=== PATIENT | female | born 1945 | race Caucasian/White ===

== ENCOUNTER → 2020-10-25 | Outpatient (CLI) | payer OTHER, MEDICARE ==
[~2020-10-25] MED LIST: ACID CONTROLLER20 MG PO; ASA81BEC PO; CARVEDILOL12.5 MG PO; CLARITIN10 M2 PO; ENALAPRIL MALEA20 MG PO; FLOMAX0.4 MG PO; FOSAMAX 70 MG T70 MG PO; MYCOPHENOLATE500 MG PO; NEORAL25 MG PO; ROSUVASTATIN CA10 MG PO; VITAMIN D32000 UNIT PO
[2020-10-25 09:29] LABS: HEMATOCRIT 32.4 % (37.0-47.0); HEMOGLOBIN 10.2 gm/dL (12.0-15.0); MCH 28.4 pg (26.0-34.0); MCHC 31.4 g/dL (28.0-37.0); MCV 90.6 fL (80.0-100.0); RBC 3.58 mil/uL (4.20-5.00); RDW 14.5 % (10.5-14.5); WBC 8.7 thou/uL (4.0-11.0)
--- NOTE | 2020-10-25 09:45 | EKG ---
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
[2020-10-25 09:53] LABS: ALBUMIN 3.3 g/dL (3.4-5.0); CALCIUM 8.8 mg/dL (8.5-10.1); CREATININE 2.3 mg/dL (0.6-1.0); MAGNESIUM 1.7 mg/dL (1.8-2.4); TOTAL BILIRUBIN 0.5 mg/dL (0.2-1.0); TOTAL PROTEIN 6.5 g/dL (6.4-8.2)
== END ==
LOC: RAD 08:48
PROVIDERS: ATTEND Otolaryngology Plastic Surgery within the Head & Neck
DX: C73 Malignant neoplasm of thyroid gland (principal); I49.9 Cardiac arrhythmia, unspecified; Z92.3 Personal history of irradiation

== ENCOUNTER 2020-10-28 08:49 | Inpatient (IN) | payer OTHER, MEDICARE ==
[~2020-10-28] VITALS: Ht 154.9 cm; Wt 101.2 kg
[2020-10-28 10:50] LABS: CALCIUM 9.1 mg/dL (8.5-10.1); CREATININE 1.8 mg/dL (0.6-1.0)
[2020-10-28 10:53] LABS: ALBUMIN 3.4 g/dL (3.4-5.0); TOTAL BILIRUBIN 0.4 mg/dL (0.2-1.0); TOTAL PROTEIN 6.6 g/dL (6.4-8.2)
[2020-10-28 12:09] VITALS: BP 171/73
[2020-10-28] MEDS ORDERED: CALCITRIOL0.25 MCG PO (15:49)
[2020-10-28] MEDS ORDERED: HYDROCODON-ACE1 EAC8 PO (15:49)
[2020-10-28] MEDS ORDERED: CALTRATE-600 W1 EACH PO (15:49)
[2020-10-28] MEDS ORDERED: SYNTHROID125 MC1 PO (15:49)
[2020-10-28 16:30] VITALS: BP 137/60
[2020-10-28 17:20] LABS: ALBUMIN 3.3 g/dL (3.4-5.0); MAGNESIUM 1.4 mg/dL (1.8-2.4)
[2020-10-28 19:15] VITALS: BP 151/69
--- NOTE | 2020-10-28 19:57 | NUR ---
PT CARE ASSUMED FROM THE OR AT 1620. A&Ox4. AT BEDSITE. ADMISSION COMPLEETED. INCISSION ON NECK DRY AND INTACT WITH STERIE STRIPS IN PLACE. LESLIE DRAIN IN RIGHT NECK WITH NO DRAINING. 30CC EMPTIED AT 1800. PT UP TO TH EBEDSIDE COMMODE AND HAS URINATED. IV INFILTRATED. NEW IV PLACED R. CHEST. PT REFUSED DINNER DUE TO NOT BEING ABLE TO SWALL FROM SURGERY SITE. PT HOME MED SENT TO PHARMACY TO BE LABELED. WILL BE STORED IN IV BIN. FALL PROTOCOL IN PLACE. CALL LIGHT IN REACH. WILL CONTINUE TO MONITOR. REPORT GIVEN TO ISRA MCNALLY. DISCHARGE ORDER PENDING FOR TOMORROW IN PLACE 10/29
[2020-10-29 04:24] VITALS: BP 172/72
--- NOTE | 2020-10-29 08:00 | NUR ---
RECEIVED CARE OF THIS PATIENT AT 1900. PATIENT ALERT AND ORIENTED X4. HAS INCISION ON NECK WITH TRANSPARENT DRESSING. LESLIE THAT HAD 40CC SEROSANGUINEOUS FLUID. SCD'S IN PLACE. UP TO BSC WITH SBA ONLY. PATIENT'S BROUGHT IN HOME MED NOT IN OUR FORMULARY. IV PATENT IN R CHEST.SLEPT MOST OF NIGHT. C/O PAIN ONLY WHEN SWALLOWING.
[2020-10-29 09:00] VITALS: BP 168/67
[2020-10-29 09:25] VITALS: BP 168/67
--- NOTE | 2020-11-01 13:07 | PATH ---
[facility] [address] [place] [address] PATHOLOGY RPT PROCEDURE Name: KATHERINE PERKINS Room #: 435-P DIS IN M.R.#: [id number] Admission: 10/28/20 Date of : 49 Discharge: 10/29/20 Report #: [id number] Path Case #: [id number] [facility] Accession Number: [id number] . 01 Material submitted: . PART A: thyroid gland - LEFT THYROID LOBE WITH ISTHMUS AND PYRAMIDAL LOBE. Modifiers: left PART B: neck - LEFT NECK NEVUS. Modifiers: left PART C: thyroid gland - RIGHT THYROID LOBE. Modifiers: right PART D: lymph node - RIGHT LEVEL 6. Modifiers: right PART E: lymph node - LEFT LEVEL 6. Modifiers: left . 01 Clinician provided ICD-10: C73 . 01 Clinical history: . THYROIDECTOMY RADICAL NECK DISSECTION PAPILLARY THYROID CARCINOMA . 02 Frozen section diagnosis: . FROZEN SECTION DIAGNOSIS: (Dr. Elvira Downing): . FSA1 and TPA2. Left thyroid lobe and isthmus, lobectomy: - 2.3 CM CALCIFIED NODULE WITH PAPILLARY THREE DIMENSIONAL GROUPS, FAVOR PAPILLARY CARCINOMA. . These findings are discussed with Dr. Jonathan Dhillon in OR1 and a written report is placed in the patient's chart. . Frozen section and touch prep performed at [facility], [address], [place] [address]. . . FROZEN SECTION GROSS DESCRIPTION: Specimen A is received fresh from the OR labeled with the patient's name, and "left thyroid lobe with isthmus and pyramidal lobe (frozen section) consists of a 21.9-gram thyroid lobe with attached isthmus measuring 7.2 x 3.0 x 1.6 cm with a 5 cm attached isthmus. The anterior capsule has multiple shant and it is inked black. The posterior capsule is rough and inked blue. At this point the specimen is serially sectioned and it shows a 2.3 x 2.0 x 2.0 cm partially calcified solid nodule in the upper pole of the left thyroid lobe. The lower pole has a spongy hemorrhagic nodule measuring 2.0 x 2.0 x 2.0 cm. At this point a sales representative cash registers section of the solid semi-calcified nodule is submitted for frozen section as FSA1, this is subsequently submitted for permanent sections as A1. An additional section is used for touch preparation labeled as TPA2, and this section is submitted for permanent sections only as A2. The remainder of [address] [address] PATHOLOGY RPT PROCEDURE Name: KATHERINE PERKINS Room #: 435-P DIS IN M.R.#: [id number] Admission: 10/28/20 Date of : 49 Discharge: 10/29/20 Report #: [id number] Path Case #: [id number] the solid nodule is submitted in entirety in A3 through A6. The isthmus and pyramidal lobe are entirely submitted in A7. Scientific Database Curator sections of the nodule as well as the remainder of the lobe are submitted for permanent sections only in A8, A9 and A10. A2 to A5 are submitted for light decalcification. (IUV/db; 10/31/2020) IZV/LBQ . 02 Diagnosis: A. Thyroid, left thyroid lobe with isthmus and pyramidal lobe, lobectomy: - PAPILLARY CARCINOMA, CLASSIC (USUAL/CONVENTIONAL) TYPE MEASURING 2.3 CM IN GREATEST DIMENSION. - TUMOR PRESENT FOCALLY AT ANTERIOR MARGIN/SURFACE OF THE LEFT THYROID LOBE. - Posterior margin free of malignancy. - Focal skeletal muscle present; negative for malignancy. - No evidence of malignancy within the isthmus/pyramidal lobe. - Remainder of the left thyroid lobe showing adenomatoid nodules in a background of multinodular hyperplasia. . B. Skin, left neck nevus, biopsy: - Compound nevus, partially sampled extends to one side margin. - Seborrheic keratosis. . C. Thyroid, right thyroid lobe, lobectomy: - 7 MM PAPILLARY MICROCARCINOMA, ONCOCYTIC VARIANT. - Margins of resection free of malignancy; closest margin is 1.5 mm away. - Background parenchyma showing dominant adenomatoid nodule with calcification along with nodular hyperplasia. . D. Lymph nodes (5), right level , dissection: - Five reactive lymph nodes; negative for malignancy (0/5). - Fibrovascular connective tissue with nerves as well as vessels; negative for malignancy. . E. Lymph nodes (5), left level , dissection; - ONE LYMPH NODE WITH METASTATIC PAPILLARY CARCINOMA MEASURING 1MM; NEGATIVE FOR EXTRACAPSULAR EXTENSION. - Remainder four of lymph nodes showing reactive changes; negative for malignancy (1/5). . 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 . Surgical Pathology Cancer Case Summary . Protocol posting date: February 2017 [facility] [address] [place] [address] PATHOLOGY RPT PROCEDURE Name: KATHERINE PERKINS Room #: 435-P DIS IN M.R.#: [id number] Admission: 10/28/20 Date of : 49 Discharge: 10/29/20 Report #: [id number] Path Case #: [id number] . THYROID GLAND: . Procedure ___ Left lobectomy with isthmus and pyramidal lobe ___ Right lobectomy . Tumor Focality ___ Multifocal . Tumor Site ___ Left lobe ___ Right lobe . Tumor Size Greatest dimension (centimeters): 2.3 cm and 0.7 cm . Histologic Type . Papillary Carcinomas ___ Papillary carcinoma, classic (usual, conventional) in the Left lobe ___ Papillary microcarcinoma, oncocytic variant with tumor capsular invasion in the Right lobe . Margins ___ Involved by carcinoma Site(s) of involvement: focally at anterior surface of the left thyroid lobe . Angioinvasion (Vascular Invasion) ___ Not identified . Lymphatic Invasion ___ Not identified . Perineural Invasion ___ Not identified . Extrathyroidal Extension ___ Not identified . Regional Lymph Nodes . Lymph Node Examination . Number of Lymph Nodes Involved: 1 Specify Placido Levels : Left Level ___ Level - pretracheal, paratracheal and prelaryngeal/Delphian, [facility] [address] [place] [address] PATHOLOGY RPT PROCEDURE Name: KATHERINE PERKINS Room #: 435-P DIS IN M.R.#: [id number] Admission: 10/28/20 Date of : 49 Discharge: 10/29/20 Report #: [id number] Path Case #: [id number] perithyroidal (central compartment dissection) . Number of Lymph Nodes Examined: 10 Specify Placido Levels ___ Level - pretracheal, paratracheal and prelaryngeal/Delphian, perithyroidal (central compartment dissection) ___ Left and Right . Pathologic Stage Classification (pTNM, AJCC 8th Edition) (Note M) Note: Reporting of pT, pN, and (when applicable) pM categories is based on information available to the pathologist at the time the report is issued. . TNM Descriptors ___ m (multiple primary tumors) . For Papillary, Follicular, Poorly Differentiated, Hurthle Cell and Anaplastic Thyroid Carcinoma . Primary Tumor (pT) pT2: Tumor >2 cm, but =4 cm in greatest dimension, limited to thyroid . . Regional Lymph Nodes (pN) pN1a: Metastasis to level or VII lymph nodes. This can be unilateral or bilateral disease. . Distant Metastasis (pM) pMX: Unknown . Additional Pathologic Findings ___ Adenomatoid nodule(s) or nodular follicular disease (eg, nodular hyperplasia, goitrous thyroid) MBR 11/01/2020 1234 Local . 02 Comment: A small focus of 1 mm thyroid parenchyma with mixed macro and microfollicular nodular architecture is identified within the left level lymph node. Nuclear features of papillary thyroid carcinoma are not identified within this focus. The lymph node shows abundant pigmented macrophages/hemosiderin laden macrophages likely secondary to the fine needle aspiration of the left thyroid lobe. In addition, properly controlled CK19 immunohistochemical stain is performed on block E2 and it shows reactivity present within this thyroid nodule supporting the diagnosis rendered. On the contrary, a thyroid inclusion or an ectopic thyroid tissue within the lymph node would be nonreactive to CK19. . Reference article: Incidental findings of thyroid tissue in cervical lymph nodes: old controversy not yet resolved? by Ruperto Sutherland al in Eur Arch Otorhinolaryngol.2016 Jun;273 (10):6108-58. [address] [address] PATHOLOGY RPT PROCEDURE Name: KATHERINE PERKINS Room #: 435-P [facility] IN M.R.#: [id number] Admission: 10/28/20 Date of : 49 Discharge: 10/29/20 Report #: [id number] Path Case #: [id number] . 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 02 Electronically signed: . Elvira Downing MD, Pathologist NPI- [id number] . 01 Gross description: . A. SEE FROZEN SECTION GROSS DESCRIPTION. . B. Received in formalin labeled "Katherine Perkins neck nevus" is a skin shave biopsy measuring 0.7 x 0.5 x 0.1 cm. The skin surface displays a regular, díaz-brown possible lesion measuring 0.5 x 0.4 x 0.2 cm. The margin is inked and the specimen is bisected and submitted in B1. . C. Received in formalin labeled "Katherine Perkins, right thyroid lobe" is a 28 g hemithyroidectomy specimen consisting of isthmus measuring 2.6 x 2.1 x 0.9 cm and right lobe measuring 5.9 x 4.2 x 2.4 cm. The external surface is smooth, red-brown with an intact capsule which is inked black. There is a bulging nodule located in the lower right lobe measuring 2.6 x 2.4 x 1.8 cm. The specimen is serially sectioned to reveal homogenous, díaz-brown with scattered díaz-brown gelatinous nodules ranging from 0.2-0.7 cm in greatest dimension. There are scattered díaz white calcified nodules corresponding to the bulging nodule in the lower lobe ranging from 0.6-2.4 cm in greatest dimension. Scientific Database Curator sections of the specimen are submitted as follows: C1. Isthmus C2. Smaller calcified nodules submitted after decalcification C3-C7. Largest calcified nodule admitted after decalcification C8-C10. Gelatinous nodules with uninvolved thyroid parenchyma . D. Received in formalin labeled "Katherine Perkins, right level 6" is irregular, díaz-yellow portion of fibroadipose tissue measuring 2.1 x 1.6 x 1.2 cm. The specimen is palpated to reveal 2 possible lymph nodes measuring 0.6 x 0.6 x 0.4 cm and 0.9 x 0.7 x 0.6 cm. The specimen is entirely submitted as follows: D1. 2 possible lymph nodes D2. Remaining fibroadipose tissue containing possible lymph nodes. . E. Received in formalin labeled "Katherine Perkins, left level 6" is irregular, díaz-yellow portion of fibroadipose tissue measuring 2.2 x 1.6 x 0.9 cm. Specimen is palpitated to reveal 3 possible lymph nodes ranging from 0.5-0.9 cm in greatest dimension. The specimen is entirely submitted as follows: E1. 3 possible lymph nodes E2. Remaining fibroadipose tissue containing possible lymph nodes.([facility]; 10/30/2020) CRISTY/CRISTY 10/31/2020 [address] [address] PATHOLOGY RPT PROCEDURE Name: KATHERINE PERKINS Room #: 435-P DIS IN M.R.#: [id number] Admission: 10/28/20 Date of : 49 Discharge: 10/29/20 Report #: [id number] Path Case #: [id number] . 02 Pathologist provided ICD-10: C73, E04.1, E04.2, D22.4, L82.1 . 02 CPT . 525182, 475770, 222919, 497249, 867201, 891042, 007556, 114583, [id number] Specimen Comment: A courtesy copy of this report has been sent to [phone] Specimen Comment: Report sent to Performed at: [address] [facility], [place] [id number] MD Missael Jorgensen MD Phone: [phone] Performed at: [address] [facility] [id number] MD Elvira Downing MD Phone: [phone]
--- NOTE | 2020-11-08 16:34 | O ---
[facility] [place] [address] OPERATIVE REPORT Name: KATHERINE PERKINS Room #: 435-P [facility] IN M.R.#: [id number] Admission: 10/28/20 Attend Phys: Jonathan Dhillon MD Discharge: 10/29/20 Date of : 49 Report #: [id number] THIS REPORT FOR: cc: Jeremiah Laws,Jonathan Hernandez MD ~ DATE OF SERVICE: 10/28/2020 SURGEON: Jonathan Dhillon MD PREOPERATIVE DIAGNOSES: 1. Papillary thyroid carcinoma. 2. History of radiation exposure. 3. History of renal transplant. 4. Pigmented skin lesion x 2. POSTOPERATIVE DIAGNOSES: 1. Papillary thyroid carcinoma. 2. History of radiation exposure. 3. History of renal transplant. 4. Pigmented skin lesion x 2. OPERATION PERFORMED: 1. Total thyroidectomy. 2. Level 6 neck dissection with preservation of recurrent laryngeal nerves. 3. Nerve integrity monitoring x 3 hours. 4. Shave biopsy, pigmented skin lesion. INDICATIONS: The patient is a 75-year-old female referred by her primary care physician, Dr. Laws for evaluation and definitive treatment of recently diagnosed thyroid malignancy by fine needle aspiration on 09/26/2020. She had had an ultrasound done in February and repeated in August, this had shown growth with some worrisome findings and the biopsy confirmed malignancy. The patient does have a history of radiation exposure being in [place] around 1955 and 1957 time frame when nuclear testing was going on. DESCRIPTION OF PROCEDURE: The patient was brought to the operating room and placed supine on the operating table. After adequate general anesthesia was achieved via endotracheal intubation with a nerve integrity monitoring endotracheal tube, a shoulder roll was placed and neck was extended. The planned incision was marked out in a relaxed skin tension line and injected with 1% Xylocaine with 1:100,000 epinephrine. As a separate part of the procedure, the nerve integrity monitor was applied to the endotracheal tube leads. Separate ground electrodes were placed in the [facility] [address] [place] [address] OPERATIVE REPORT Name: KATHERINE PERKINS Room #: 435-P [facility] IN .R.#: [id number] Admission: 10/28/20 Attend Phys: Jonathan Dhillon MD Discharge: 10/29/20 Date of : 49 Report #: [id number] tissue overlying the sternum and contralateral shoulder. Electrode resistance and impedance was measured and found to be acceptable. Threshold and stimulus intensity parameters were set, and the patient was monitored for the entirety of the case of approximately 3 hours in order to locate and protect the recurrent laryngeal nerve. The procedure began with 2 very pigmented acrochordon just over superior to my incision line. These were removed by shave biopsy and sent as separate biopsy. Once these were removed, an incision was made through the skin, subcutaneous tissue, and platysma. Subplatysmal flaps were elevated superiorly and inferiorly. Dissection was made down to the strap muscles. These were divided vertically in the midline and retracted laterally. The procedure began on the patient's left side. This side had very dense nodules, very firm with calcified. There was a large pyramidal lobe present off to the left of midline. This was then dissected superiorly and taken with the specimen. The superior lobe on the left was then dissected. The superior vessels were sequentially identified, clamped between Ligaclips and divided. Middle thyroid vein was taken down between Ligaclips and divided. The inferior vessels were sequentially identified, taken down between Ligaclips and divided. Isthmus was elevated off the trachea and divided to the right of midline. The gland was then rotated up on to the trachea. Dissection in the tracheoesophageal groove revealed the recurrent nerve in its usual anatomic position. The inferior parathyroid was located running with the inferior thyroid artery on this side and preserved. The superior parathyroid was attached to the capsule, also dissected free and preserved. Dissection of the nerve was then taken up to the cricothyroid joint and confirmed with probe stimuli. Cruz's ligament was taken down sharply and the lobe was delivered off the field as specimen to pathology for frozen section. This did confirm a papillary carcinoma, but very calcified. While this was pending, the right lobe was dissected beginning superiorly. The superior vessels were sequentially identified, clamped between Ligaclips and divided. Middle thyroid vein was taken down between Ligaclips. Inferior vessels were sequentially identified, clamped between Ligaclips and divided. This lobe was then rotated up on to the trachea. Dissection then began in the tracheoesophageal groove. The nerve was easily identified again and tracked superiorly to the cricothyroid joint, confirmed with probe stimuli. Again, on this side, the inferior parathyroid on the right was running with the inferior thyroid artery. It was identified, dissected and preserved. The superior parathyroid was attached to the capsule, again dissected free of the capsule and preserved on its blood supply. Cruz's ligament was taken down sharply with the nerve in direct vision and this lobe delivered off the field as specimen. Hemostasis was assured with bipolar cautery and clip ligature. Dissection then began at the level 6 on the right side. The nerve was tracked from the identified area in the tracheoesophageal groove near the cricothyroid joint inferiorly to the upper mediastinum. Care was taken to move the parathyroid out of the way to protect it on its blood supply. The soft tissue and di bearing [facility] [address] [address] OPERATIVE REPORT Name: KATHERINE PERKINS Room #: 435-P [facility] IN M.R.#: [id number] Admission: 10/28/20 Attend Phys: Jonathan Dhillon MD Discharge: 10/29/20 Date of : 49 Report #: [id number] tissue was then removed beginning from the carotid artery laterally and extended medially. This was taken down to the thymus gland. The vessels coming out of the upper mediastinum were clamped between Ligaclips and divided and this was then divided in the midline and delivered off the field as specimen as a right level 6. Similarly on the left, the dissection was taken from the known recurrent nerve inferiorly to the upper mediastinum. Again, the inferior parathyroid on this side was left on its blood supply and dissected to protect it. The soft tissue and di bearing tissue was then removed in level 6 down to the upper mediastinum. The blood vessels coming out of the mediastinum were clamped between Ligaclips and divided and then this entire neck dissection was delivered off the field as specimen to pathology. These were sent in formalin. Again, the wound was irrigated, hemostasis was assured with bipolar cautery and clip ligature. Both nerves were stimulated at the end of the procedure and found to be intact. Parathyroids were again examined and appeared viable. At this point, the strap muscles were closed vertically in the midline with interrupted 3-0 Vicryl. Prior to closure, a 10-Cypriot Romeo drain was placed through a separate stab incision, curled into the wound and connected to bulb suction. The drain was sutured in place with 2-0 silk. The platysmal layer was then closed with interrupted 3-0 Vicryl and then 4-0 Vicryl deep dermal sutures were placed followed by a 5-0 running subcuticular stitch on skin. Mastisol and Steri-Strips were applied. The drain was sutured in place with 2-0 silk. The patient was then returned to anesthesia, awake without difficulty and returned to recovery in good condition. Sponge and needle counts were correct. There were no complications. Blood loss was about 40 mL. She will be watched overnight for monitoring of calcium, presuming she does well, discharge to home with plans to follow up with me in 2 weeks. Written and verbal discharge instructions and emergency precautions have been given to her . DISCHARGE MEDICATIONS: Will include Synthroid 125 mcg daily, hydrocodone/acetaminophen 7.5/325 one to two q. 4-6 hours p.r.n., Tums 500 mg 2 tablets t.i.d., ondansetron ODT 4 mg tablet 1 p.o. q. 4-6 hours p.r.n., cephalexin 500 mg 1 four times a day for 10 days. DISCHARGE INSTRUCTIONS: She is instructed on light activity and a soft diet. She is instructed on signs and symptoms of hypocalcemia. She and her are instructed. <ELECTRONICALLY SIGNED> By: Jnoathan Dhillon MD 11/08/20 1634 1517 1552 Jonathan Dhillon MD /nt
== END 2020-10-29 10:19 | disposition home or self-care (01) | DRG 626 ==
LOC: OR 08:49 → TBA 09:52 → OR 10:54 → EDSTATUS 14:33 → OR 15:04 → 4S 16:15
PROVIDERS: ADMIT Otolaryngology Plastic Surgery within the Head & Neck; ATTEND Otolaryngology Plastic Surgery within the Head & Neck
DX: C73 Malignant neoplasm of thyroid gland (principal); Z94.0 Kidney transplant status; L81.9 Disorder of pigmentation, unspecified; Z92.3 Personal history of irradiation
CPT/HCPCS: 10102; 50010; 50101; 50386; 50417; 50455; 52190; 52220; 52287; 56524; 56526; 56528; 56760; 57006; 62110; 62900; 70005